=== PATIENT | female | born 1960 | race Caucasian/White ===

== ENCOUNTER 2016-10-08 19:29 | Emergency (ER) ==
[2016-10-08 19:34] VITALS: BP 158/92; TEMP 100.4; BMI 23.6
[2016-10-08] MEDS ORDERED: LIDOCAINE 1 % AMP 5 ML (SUTURES) SUBCUT STA (19:41)
[2016-10-08] MEDS ORDERED: TENIVAC IM ONE (19:43)
--- NOTE | 2016-10-08 20:17 | ED.PDOC ---
General ED Provider: Dr. DAVINA ARRINGTON-ER Chief Complaint: Finger Laceration Stated Complaint: i hit my finger with a mallet Time Seen by Physician: 19:00 Mode of Arrival: Walk-In Information Source: Patient Exam Limitations: No limitations Primary Care Provider: MIKEL BELTRAN Nursing and Triage Documentation Reviewed and Agree: Yes Musculoskeletal Complaint Exam - Hand/Wrist Complaint/Exam Location of Pain: Reports: Right, Digit #2 Mechanism of Injury: Reports: Trauma Onset/Duration: 30 min Symptoms Are: Still present Onset of Pain: Reports: Immediate Initial Severity: Mild Current Severity: Mild Location: Reports: Discrete (right finger) Character: Reports: Dull, Aching Alleviating: Reports: None Aggravating: Reports: Movement Associated Signs and Symptoms: Denies: Swelling, Redness, Bruising, Fever, Weakness, Numbness, Tingling Hand/Wrist Findings: Present: Laceration Tenderness: Present: Phalanx Compartment Syndrome Risk Factors: Present: Pain. Absent: Paralysis, Pallor, Pulselessness, Paresthesias Differential Diagnoses: Open Fracture, Other Review of Systems - Review Of Systems Constitutional: Reports: No symptoms Eyes: Reports: No symptoms Ears, Nose, Mouth, Throat: Reports: No symptoms Respiratory: Reports: No symptoms Cardiac: Reports: No symptoms GI: Reports: No symptoms : Reports: No symptoms Musculoskeletal: Reports: No symptoms Skin: Reports: No symptoms Neurological: Reports: No symptoms Endocrine: Reports: No symptoms Hematologic/Lymphatic: Reports: No symptoms All Other Systems: Reviewed and Negative Past Medical History - Past Medical History Previously Healthy: Yes Endocrine: Reports: Unknown Cardiovascular: Reports: Unknown Respiratory: Reports: Unknown Hematological: Reports: Unknown Gastrointestinal: Reports: Unknown Genitourinary: Reports: Unknown Neuro/Psych: Reports: Unknown Musculoskeletal: Reports: Unknown Cancer: Reports: Unknown Last Menstrual Period: none - Surgical History General Surgical History: Reports: Unknown - Family History Family History: Reports: Unknown - Social History Smoking Status: Never smoker Hx Substance Use: No Alcohol Screening: Occasionally Lives: With family - Immunizations Tetanus Shot up to Date: No (unsure) Physical Exam - Physical Exam Appearance: Well-appearing, No pain distress, Well-nourished Pain Distress: Mild Eyes: EMILY, EOMI, Conjunctiva clear ENT: Ears normal, Nose normal, Oropharynx normal Neck: Supple Respiratory: Airway patent Cardiovascular: RRR, Pulses normal, No rub, No murmur GI/: Soft, Nontender, No masses, Bowel sounds normal, No Organomegaly Musculoskeletal: Normal strength, ROM intact, No edema, No calf tenderness Skin: Warm, Dry, Normal color Neurological: Sensation intact, Motor intact, Reflexes intact, Cranial nerves intact, Alert, Oriented Psychiatric: Affect appropriate, Mood appropriate Interpretation - Radiology Interpretation Radiology Interpretation By: ED Physician Radiology Results: Negative Procedures - Laceration/Wound Repair No standard instances Wound Description: Linear Wound Length (cm): 2cm right index finger Wound Explored: Clean Wound Irrigated: Yes Wound Prep: Hibiclens Anesthesia: Lidocaine Wound Repaired With: Sutures Suture Size and Type: 4 prolene Number of Sutures: 7 Layer Closure?: No Sterile Dressing Applied?: Yes Splint Applied?: No Sling Applied?: No Re-Evaluation - Re-Evaluation Time of Re-Evaluation: 20:18 Status: Unchanged, Improved (good flexion and extension) Vital Signs Stable: Yes Pain Level: 3 Appearance: NAD Lungs: Clear Skin: Warm and Dry Neuro: Alert and Oriented X3 CV: RRR Critical Care Note - Critical Care Note Total Time (mins): 0 Course - Course Orders, Labs, Meds: Orders Category Date Time Status Lidocaine HCl/Pf [Lidocaine 1 % Amp 5 ml (Sutures)] MEDS 10/08/16 19:41 Discontinued 5 ml SUBCUT ONCE STA Tetanus and Diphtheria Tox/Pf [Tenivac] MEDS 10/08/16 19:43 Discontinued 0.5 ml IM .ONCE ONE FINGER(S) RIGHT MIN 2V Stat RADS 10/08/16 19:43 Taken Medications Discontinued Medications Generic Name Dose Route Start Last Admin Trade Name Wojciechq PRN Reason Stop Dose Admin Lidocaine HCl 5 ml 10/08/16 19:41 10/08/16 20:01 Lidocaine 1 % Amp 5 Ml (Sutures) SUBCUT 10/08/16 19:42 5 ml ONCE STA Administration Tetanus/Diphtheria Toxoids Adsorbed 0.5 ml 10/08/16 19:43 10/08/16 20:00 Tenivac IM 10/08/16 19:44 0.5 ml .ONCE ONE Administration Vital Signs: Temp Pulse Resp BP Pulse Ox 10/08/16 19:29 100.4 F H 96 H 18 158/92 H 96 Departure - Departure Time of Disposition: 20:18 Disposition: HOME SELF-CARE Discharge Problem: Laceration of finger Instructions: Care For Your Stitches (ED), Laceration (ED), Finger Laceration ( ED) Condition: Good Pt referred to PMD for follow-up: Yes Additional Instructions: keep wound clean and dry--norco 5mg q 4hrs prn pain #10--sutures out in 7 days-- return if any signs of infection Allergies/Adverse Reactions: Allergies No Known Allergies Allergy (Verified 10/08/16 19:34) Home Medications: Ambulatory Orders Hydrochlorothiazide 12.5 mg PO DAILY 10/08/16 Disposition Discussed With: Patient, Family
[2016-10-08] MEDS ORDERED: BACTROBAN TP STA (20:21)
--- NOTE | 2016-10-08 20:25 | DI ---
EXAM: Radiographs, right second finger HISTORY: Initial presentation for right second finger trauma. COMPARISON: None available. TECHNIQUE: 3 views. FINDINGS: Bone mineralization is normal. There is no fracture or dislocation. The joint spaces ar e maintained. No focal soft tissue abnormality is seen. IMPRESSION: No fracture or dislocation.
== END 2016-10-08 20:26 | disposition home or self-care (01) ==
LOC: ED 19:29
DX: S61.210A Laceration without foreign body of right index finger without damage to nail, initial encounter (principal); W22.8XXA Striking against or struck by other objects, initial encounter
CPT/HCPCS: 90471; 99283